=== PATIENT | female | born 1970 | race Hispanic/Latino ===

== ENCOUNTER → 2023-03-08 | Day surgery (SDC) | payer BC ==
[2023-03-07 09:35] VITALS: BMI 29.2
[~2023-03-08] MED LIST: Acetaminophen 325 MG TAB PO PRN; Bupivacaine PF 0.5% 30 ML VIAL ONE; CEFAZOLIN 2 GM VIAL ONE; Dexmedetomidine 200 MCG/2 ML VIAL ONE; EPINEPHrine 1 MG/ML VIAL ONE; Glycopyrrolate 0.2 MG/ML 5 ML SYRINGE ONE; HYDROcodone/Acetaminophen 5/325 mg Tablet PO PRN; Lidocaine 1% PF 5 ML VIAL ONE; PROPOFOL 20 ML ONE; Water For Injection,Sterile 20 ML ONE; fentaNYL 50 mcg/mL 1 mL Vial ONE
== END ==
LOC: CSHSDC 05:35
PROVIDERS: ATTEND Surgery
DX: C09.9 Malignant neoplasm of tonsil, unspecified (principal)
CPT/HCPCS: 71045; C1788; J0171; J1642; J2704; J3010; S0020

== ENCOUNTER 2023-03-25 05:42 | Day surgery (SDC) | payer BC ==
[2023-03-23 16:03] VITALS: BMI 28.9
[2023-03-25] MEDS ORDERED: Ondansetron PF 4 MG/2 ML Vial ONE (06:52)
[2023-03-25] MEDS ORDERED: CEFAZOLIN 2 GM VIAL ONE (06:56)
[2023-03-25] MEDS ORDERED: PROPOFOL 20 ML ONE ×2 (07:04)
[2023-03-25] MEDS ORDERED: fentaNYL 50 mcg/mL 1 mL Vial ONE (07:04)
[2023-03-25] MEDS ORDERED: Lidocaine 1% PF 5 ML VIAL ONE (07:25)
[2023-03-25] MEDS ORDERED: HYDROcodone/Acetaminophen 5/325 mg Tablet PO PRN (07:49)
[2023-03-25] MEDS ORDERED: Acetaminophen 325 MG TAB PO PRN (07:49)
== END 2023-03-25 08:14 | disposition home or self-care (01) ==
LOC: CSHSDC 05:42
PROVIDERS: ATTEND Surgery
PROC: 0DH63UZ Insertion of Feeding Device into Stomach, Percutaneous Approach (ICD-10-PCS; principal; 2023-03-25)
DX: C09.9 Malignant neoplasm of tonsil, unspecified (principal); I10 Essential (primary) hypertension; F41.9 Anxiety disorder, unspecified; Z79.899 Other long term (current) drug therapy
CPT/HCPCS: J2405; J2704; J3010